=== PATIENT | female | born 1990 | race Caucasian/White ===

== ENCOUNTER 2017-07-07 20:52 | Emergency (ER) | payer OTHER ==
[~2017-07-07] VITALS: Ht 162.6 cm; Wt 105.5 kg
[~2017-07-07 20:52] MED LIST: BACL10TA PO; LAMO25 PO; LITH600 PO; NAPR-58 PO
[2017-07-07] MEDS ORDERED: BACTDSB PO (20:58)
[2017-07-07] MEDS ORDERED: IBUPROFEN 600 MG TABLET PO ONE (23:15)
[2017-07-07] MEDS ORDERED: ACETAMINOPHEN/CODEINE 300-30 MG TABLET PO ONE (23:15)
[2017-07-07] MEDS ORDERED: GuaiFENesin/D-METHORPHAN [SUGAR-FREE] 200-20MG/10 ML SYRUP UDCUP PO ONE (23:15)
[2017-07-07 23:16] VITALS: BP 119/81
== END 2017-07-07 23:18 | disposition home or self-care (01) ==
LOC: EMS 20:54
DX: J02.8 Acute pharyngitis due to other specified organisms (principal); B97.89 Other viral agents as the cause of diseases classified elsewhere; F17.210 Nicotine dependence, cigarettes, uncomplicated; Z88.1 Allergy status to other antibiotic agents; Z88.8 Allergy status to other drugs, medicaments and biological substances
CPT/HCPCS: 99284; 99406

== ENCOUNTER 2022-09-19 17:46 | Emergency (ER) | payer OTHER ==
[~2022-09-19] VITALS: Ht 162.6 cm; Wt 111.0 kg
[~2022-09-19 17:46] MED LIST changes: -BACL10TA PO; +BACTDSB PO; -LAMO25 PO; -LITH600 PO; -NAPR-58 PO
[2022-09-19] MEDS ORDERED: IBUPROFEN 400 MG TABLET PO ONE (20:30)
[2022-09-19] MEDS ORDERED: ACETAMINOPHEN 325 MG TABLET PO ONE (20:30)
[2022-09-19 21:48] VITALS: BP 121/79
== END 2022-09-19 21:51 | disposition home or self-care (01) ==
LOC: EMS 18:04
DX: G56.01 Carpal tunnel syndrome, right upper limb (principal); F10.20 Alcohol dependence, uncomplicated; J45.909 Unspecified asthma, uncomplicated; Z88.6 Allergy status to analgesic agent
CPT/HCPCS: 99283